=== PATIENT | female | born 1950 | race Caucasian/White ===

== ENCOUNTER 2017-02-07 09:20 | Emergency (ER) | payer MEDICAID, MEDICARE ==
[2017-02-07] MEDS ORDERED: Propranolol TAB* 20 MG PO ONE (11:03)
[2017-02-07] MEDS ORDERED: cloNIDine TAB* 0.1 MG PO ONE (11:08)
--- NOTE | 2017-02-07 11:10 | UC ---
General HPI - HPI Summary HPI Summary: Patient has a long standing issue with anxiety, has been on clonazepam for the past 15 years. she states that she lost the botttle and has not had it in the past two days, she is due for a refill in 3 days. Complaining of increased anxiety, shaking, twiching of her arms and legs, denies any palpitations, dizzyness or lightheadedness. - History of Current Complaint Chief Complaint: UCGeneralIllness Stated Complaint: CHILLS ARM TWITCHING Time Seen by Provider: 02/07/17 10:37 Hx Obtained From: Patient Onset/Duration: Sudden Onset, Lasting Days Timing: Constant Onset Severity: Moderate Current Severity: Moderate Associated Signs & Symptoms: Positive: Headache - Allergy/Home Medications Allergies/Adverse Reactions: Allergies Allergy/AdvReac Type Severity Reaction Status Date / Time Epinephrine Allergy Severe RAPID Verified 02/07/17 09:39 HEART RATE Codeine Allergy Intermediate Itching Verified 02/07/17 09:39 Amoxicillin Allergy Mild Itching Verified 02/07/17 09:39 ANYTHING WITH EPINEPHRINE Allergy Severe RAPID Uncoded 02/07/17 09:39 HEART RATE Home Medications: Home Medications Simvastatin [Zocor 5 MG-] 5 mg PO DAILY 02/07/17 [History Confirmed 02/07/17] PMH/Surg Hx/FS Hx/Imm Hx Previously Healthy: Yes Endocrine History Of: Reports: Thyroid Disease Cardiovascular History Of: Reports: Cardiac Disorders - , ATRIAL TACHYCARDIA Psychological History Of: Reports: Anxiety, Depression Cancer History Of: Denies: Breast Cancer - Surgical History Surgical History: Yes Surgery Procedure, Year, and Place: D&C, TWO SINUS SURGERIES - Family History Known Family History: Positive: Cardiac Disease, Hypertension - Social History Alcohol Use: None Substance Use Type: None, Prescribed Substance Use Comment - Amount & Last Used: benzo's Smoking Status (MU): Never Smoked Tobacco Review of Systems Constitutional: Negative Skin: Negative Eyes: Negative ENT: Negative Respiratory: Negative Cardiovascular: Negative Gastrointestinal: Negative Genitourinary: Negative Motor: Negative Neurovascular: Other - twitching Musculoskeletal: Negative Neurological: Negative Psychological: Anxious All Other Systems Reviewed And Are Negative: Yes Physical Exam Triage Information Reviewed: Yes Appearance: Well-Nourished, Ill-Appearing, Pain Distress Vital Signs: Initial Vital Signs Temp 97.0 F 02/07/17 09:31 Pulse 88 02/07/17 09:31 Resp 20 02/07/17 09:31 BP 172/110 02/07/17 09:31 Pulse Ox 98 02/07/17 09:31 Vital Signs Reviewed: Yes Eyes: Positive: Conjunctiva Clear - PERRLA, EOMI, Other: ENT: Positive: Pharynx normal, Pharyngeal erythema, TMs normal Dental Exam: Normal Neck exam: Normal Neck: Positive: Supple, Nontender, No Lymphadenopathy Respiratory Exam: Normal Respiratory: Positive: Chest non-tender, Lungs clear, Normal breath sounds Cardiovascular Exam: Normal Cardiovascular: Positive: RRR, No Murmur, Pulses Normal Abdominal Exam: Normal Abdomen Description: Positive: Nontender, No Organomegaly, Soft Bowel Sounds: Positive: Present Musculoskeletal Exam: Normal Musculoskeletal: Positive: Strength Intact, ROM Intact, No Edema Neurological Exam: Normal Neurological: Positive: Alert, Other: - twitching of left hand noted Psychological: Positive: Other: - anxious, conversation is coherent, she was recently dishcarged from her PCP, does not have any provider at this time. She was in counseling but no longer has a counselor as well. Skin Exam: Normal Course/Dx - Course Course Of Treatment: hc obtained, exam performed, meds reviewed, BP med given. I stop reviewed and is reflective of patients story. Repeat BP was, 3 days of xanax given to bring her to her refill, name of physician referral center given to set up with new provider. clonidine prescribed for BP - Differential Dx - Multi-Symptom Provider Diagnoses: anxiety. medication refill. hypertension Discharge - Discharge Plan Condition: Stable Disposition: HOME Prescriptions: ALPRAZolam TAB* [Xanax TAB*] 1 mg PO TID PRN #18 tab MDD 3 mg PRN Reason: Anxiety cloNIDine TAB* [Catapres 0.1 MG TAB*] 0.1 mg PO BID #60 tab Patient Education Materials: Chronic Hypertension (ED), Anxiety (ED) Referrals: Sameera Pickett MD [Primary Care Provider] - Additional Instructions: I have prescribed you 3 days of klonapin to get you to your refill. you need to be set up with a primary physician, to follow you and your medications. I also recommend getting [facility]ouch with [facility] to start up sessions again. Take your blood pressure medication regularly. Report to ER with any increasing symptoms of withdrawl.
[2017-02-07 12:36] VITALS: BP 140/89
== END 2017-02-07 12:56 | disposition home or self-care (01) ==
LOC: UCEAST 09:20
DX: F41.9 Anxiety disorder, unspecified (principal); E07.9 Disorder of thyroid, unspecified; I47.1 Supraventricular tachycardia; F32.9 Major depressive disorder, single episode, unspecified; I10 Essential (primary) hypertension; Z88.3 Allergy status to other anti-infective agents; Z88.5 Allergy status to narcotic agent
CPT/HCPCS: 93005; 99212; A9270-GY; G0463